=== PATIENT | male | born 1970 | race American Indian/Alaskan Native ===

== ENCOUNTER 2022-02-04 07:58 | Emergency (ER) | payer OTHER ==
[2022-02-04 08:19] VITALS: BP 132/72
--- NOTE | 2022-02-04 08:38 | Emergency Department Report ---
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 Patient states symptoms started after rubbing his 2 days ago. Patient denies decreased vision however patient symptoms include itching burning and redness. With clear drainage. There is been no fevers no chills no headache no dizziness symptoms are exacerbated by rubbing. Symptoms are relieved by nothing tried. Patient states mild photophobia. No nausea or vomiting. - Related Data Previous Rx's Medication Instructions Recorded Last Taken Type Meloxicam 15 mg PO QDAY #10 tablet 07/13/14 Unknown Rx methOCARBAMOL [Robaxin] 500 mg PO BID #10 tab 07/13/14 Unknown Rx Ketotifen Fumarate [Zaditor] 2 drops OP BID #5 ml 02/04/22 Unknown Rx Polymyxin B Sulf/Trimethoprim 2 drop OP Q3HR 7 Days #10 ml 02/04/22 Unknown Rx [Polytrim Eye Drops [id number]/0.1%] Allergies Allergy/AdvReac Type Severity Reaction Status Date / Time No Known Allergies Allergy Verified 07/13/14 19:12 ED Review of Systems ROS: Stated complaint: LT EYE PAIN/SWOLLEN Other details as noted in HPI Constitutional: denies: chills, fever Eyes: eye pain, eye discharge (Itching burning clear). denies: vision change ENT: denies: ear pain, throat pain Respiratory: denies: cough, shortness of breath, wheezing Cardiovascular: denies: chest pain, palpitations Endocrine: no symptoms reported Gastrointestinal: denies: abdominal pain, nausea, diarrhea Genitourinary: denies: urgency, dysuria Musculoskeletal: denies: back pain, joint swelling, arthralgia Skin: denies: rash, lesions Neurological: denies: headache, weakness, paresthesias Psychiatric: denies: anxiety, depression Hematological/Lymphatic: denies: easy bleeding, easy bruising ED Past Medical Hx - Past Medical History Previous Medical History?: No - Surgical History Additional Surgical History: R arm surgery - Social History Smoking Status: Never Smoker - Medications Home Medications: Home Medications Medication Instructions Recorded Confirmed Last Taken Type Meloxicam 15 mg PO QDAY #10 tablet 07/13/14 Unknown Rx methOCARBAMOL [Robaxin] 500 mg PO BID #10 tab 07/13/14 Unknown Rx Ketotifen Fumarate [Zaditor] 2 drops OP BID #5 ml 02/04/22 Unknown Rx Polymyxin B Sulf/Trimethoprim 2 drop OP Q3HR 7 Days #10 ml 02/04/22 Unknown Rx [Polytrim Eye Drops 33926dfhvd/0.1%] ED Physical Exam - General Limitations: No Limitations General appearance: alert, in no apparent distress - Head Head exam: Present: normocephalic, normal inspection - Eye Eye exam: Present: PERRL, EOMI, conjunctival injection (Left). Absent: nystagmus Pupils: Present: normal accommodation - Expanded Eye Exam Expanded Pupils: Regular, Round: Bilateral Sclera/Conjunctival: Injection: Left Anterior chamber: Normal Inspection: Left Posterior chamber: Deferred: Bilateral Visual acuity (R) = 20/: 30 Visual acuity (L) = 20/: 30 - ENT ENT exam: Present: mucous membranes moist - Neck Neck exam: Present: normal inspection, full ROM. Absent: tenderness, lymphadenopathy - Respiratory Respiratory exam: Present: normal lung sounds bilaterally. Absent: respiratory distress, wheezes - Cardiovascular Cardiovascular Exam: Present: regular rate, normal rhythm, normal heart sounds. Absent: systolic murmur, diastolic murmur, rubs, gallop - GI/Abdominal GI/Abdominal exam: Present: soft, normal bowel sounds. Absent: distended, tenderness - Rectal Rectal exam: Present: deferred - Extremities Exam Extremities exam: Present: normal inspection, full ROM - Back Exam Back exam: Present: normal inspection - Neurological Exam Neurological exam: Present: alert, oriented X3 - Psychiatric Psychiatric exam: Present: normal affect, normal mood - Skin Skin exam: Present: warm, dry, intact, normal color. Absent: rash ED Course Vital Signs 02/04/22 08:16 Temperature 98.9 F Pulse Rate 74 Respiratory 18 Rate Blood Pressure 132/72 O2 Sat by Pulse 97 Oximetry ED Medical Decision Making - Medical Decision Making The straight for conjunctivitis pinkeye. Patient will be DC'd home with prescriptions patient verbalized agreement and understanding of same. We will follow-up with ophthalmology tomorrow. She will return to ED should symptoms worsen. Patient DC'd home in stable condition at this time. Critical care attestation.: If time is entered above; I have spent that time in minutes in the direct care of this critically ill patient, excluding procedure time. ED Disposition Clinical Impression: Conjunctivitis Qualifiers: Conjunctivitis type: acute Acute conjunctivitis type: bacterial Laterality: lef t Qualified Code(s): H10.32 - Unspecified acute conjunctivitis, left eye Disposition: HOME / SELF CARE / HOMELESS Is pt being admited?: No Does the pt Need Aspirin: No Condition: Stable Instructions: How to Use Eye Drops and Eye Ointments Additional Instructions: Follow-up with ophthalmology tomorrow. Take medications as prescribed. Return to emergency department should symptoms worsen. Prescriptions: Polymyxin B Sulf/Trimethoprim [Polytrim Eye Drops [id number]/0.1%] 2 drop OP Q3HR 7 Days #10 ml Ketotifen Fumarate [Zaditor] 2 drops OP BID #5 ml Referrals: POPPY WOOTEN MD [Staff Physician] - 24 Hours Forms: Work/School Release Form(ED) Time of Disposition: 08:41
== END 2022-02-04 19:39 | disposition home or self-care (01) ==
LOC: ED 07:58
DX: H10.9 Unspecified conjunctivitis (principal)
CPT/HCPCS: 99282